=== PATIENT | female | born 1985 | race Caucasian/White ===

== ENCOUNTER 2024-05-13 11:52 | Outpatient (CLI) | payer BC, OTHER ==
[2024-05-13] MEDS ORDERED: Iopamidol 370 76% 100 ML VIAL ONE (13:09)
== END 2024-05-13 11:53 | disposition home or self-care (01) ==
LOC: BICCT 11:52
PROVIDERS: ATTEND Physician Assistant Medical
DX: K52.9 Noninfective gastroenteritis and colitis, unspecified (principal); R10.9 Unspecified abdominal pain
CPT/HCPCS: 74177; Q9967